=== PATIENT | male | born 1975 | race Caucasian/White ===

== ENCOUNTER 2016-12-17 07:23 | Emergency (ER) | payer BC ==
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
--- NOTE | 2016-12-17 09:02 | ED ORDER SUMMARY ---
..... Patient: CECILIA BARRAGAN OrderSheet [facility] VisitID: [id number] [address] [place] [address] 41y, M Registration Date/Time: 12/17/2016 ORDER SHEET Weight: 70.3 kg (stated) Allergies: None GENERAL ORDERS: EKG - ER Stat (07:35 12/17/2016 Lauri R.NJoya per protocol) (7:44 Lauri R.N.) Chest 1V Urgent (07:54 12/17/2016 Alice Vasquez) (8:10 Vickie R.N.) Cardiac Panel Stat (07:54 12/17/2016 Alice Vasquez) (8:09 Vickie R.N.) MEDICATION ORDERS: IV FLUIDS: IV Saline Lock (07:54 12/17/2016 Alice Vasquez) (8:10 Vickie R.N.) ORDER SHEET NOTES: [Electronically signed by Nathanael Gustafson Dr. (09:04 12/17/2016)] [Electronically signed by Ludin Mtichell R.N. (09:16 12/17/2016)] [Electronically locked/signed by Ludin Mitchell R.N. (09:16 12/17/2016)]
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
--- NOTE | 2016-12-17 09:02 | ED ORDER SUMMARY ---
..... Patient: CECILIA BARRAGAN OrderSheet [facility] VisitID: [id number] [address] [place] [address] 41y, M Registration Date/Time: 12/17/2016 ORDER SHEET Weight: 70.3 kg (stated) Allergies: None GENERAL ORDERS: EKG - ER Stat (07:35 12/17/2016 Lauri R.NoJya per protocol) (7:44 Lauri R.N.) Chest 1V Urgent (07:54 12/17/2016 Alice Vasquez) (8:10 Vickie R.N.) Cardiac Panel Stat (07:54 12/17/2016 Alice Vasquez) (8:09 Vickie R.N.) MEDICATION ORDERS: IV FLUIDS: IV Saline Lock (07:54 12/17/2016 Alice Vasquez) (8:10 Vickie R.N.) ORDER SHEET NOTES: [Electronically signed by Nathanael Gustafson Dr. (09:04 12/17/2016)] [Electronically signed by Ludin Mitchell R.N. (09:16 12/17/2016)] [Electronically locked/signed by Ludin Mitchell R.N. (09:16 12/17/2016)]
--- NOTE | 2016-12-17 09:16 | ED DISCHARGE INSTRUCTIONS ---
Patient: CECILIA BARRAGAN General Instructions [facility] VisitID: [id number] [place] [address] 41y, M Registration Date/Time: 12/17/2016 Atypical chest pain .12 lead EKG performed. INSTRUCTIONS Your Current Medications: CONTINUE TAKING THE FOLLOWING MEDICATIONS: None*. Follow-up: Follow up with your doctor in about three days. Call for an appointment. Screening today revealed the patient's blood pressure to be in the normal range. ADDITIONAL INFORMATION Chest Pain, Noncardiac Based on your visit today, the exact cause of your chest pain is not certain. Your condition does not seem serious and your pain does not appear to be coming from your heart. However, sometimes the signs of a serious problem take more time to appear. Therefore, please watch for the warning signs listed below. Home Care: Rest today and avoid strenuous activity. Take any prescribed medicine as directed. Follow Up with your doctor or this facility as instructed or if you do not start to feel better within 24 hours. Get Prompt Medical Attention if any of the following occur: A change in the type of pain: if it feels different, becomes more severe, lasts longer, or begins to spread into your shoulder, arm, neck, jaw or back Shortness of breath or increased pain with breathing Cough with dark colored sputum (phlegm) or blood Weakness, dizziness, or fainting Fever of 100.4F (38C) or higher, or as directed by your healthcare provider Swelling, pain or redness in one leg You have been given the following additional information: Chest Pain, Noncardiac (Electronically signed by Nathanael Gustafson Dr. 12/17/2016 9:04)
--- NOTE | 2016-12-17 09:16 | ED MAR SUMMARY ---
..... Medication Administration Record [facility] [address], [place] [id number] Patient: CECILIA BARRAGAN Visit ID: [id number] 41y, M Weight: 70.3 kg Height/Length: 71 in BMI: 21.6 ALLERGIES: None
--- NOTE | 2016-12-17 09:16 | ED MED RECONCILIATION SUMMARY ---
Patient: CECILIA BARRAGAN Medication Reconciliation Report [facility] VisitID: [id number] [address] [place] [address] 41y, M Registration Date/Time: 12/17/2016 Weight: 70.3 kg Height/Length: 71 in. BMI: 21.6 ALLERGIES: None The patient's Home Medications are listed below: NONE. The source(s) of the original Home Medication information: Not obtained. The following Medications were given to the patient in the Emergency Department: None. The following Medications were prescribed to the patient: None.
--- NOTE | 2016-12-17 09:16 | ED DISCHARGE INSTRUCTIONS ---
Patient: CECILIA BARRAGAN General Instructions [facility] VisitID: [id number] [place] [address] 41y, M Registration Date/Time: 12/17/2016 Atypical chest pain .12 lead EKG performed. INSTRUCTIONS Your Current Medications: CONTINUE TAKING THE FOLLOWING MEDICATIONS: None*. Follow-up: Follow up with your doctor in about three days. Call for an appointment. Screening today revealed the patient's blood pressure to be in the normal range. ADDITIONAL INFORMATION Chest Pain, Noncardiac Based on your visit today, the exact cause of your chest pain is not certain. Your condition does not seem serious and your pain does not appear to be coming from your heart. However, sometimes the signs of a serious problem take more time to appear. Therefore, please watch for the warning signs listed below. Home Care: Rest today and avoid strenuous activity. Take any prescribed medicine as directed. Follow Up with your doctor or this facility as instructed or if you do not start to feel better within 24 hours. Get Prompt Medical Attention if any of the following occur: A change in the type of pain: if it feels different, becomes more severe, lasts longer, or begins to spread into your shoulder, arm, neck, jaw or back Shortness of breath or increased pain with breathing Cough with dark colored sputum (phlegm) or blood Weakness, dizziness, or fainting Fever of 100.4F (38C) or higher, or as directed by your healthcare provider Swelling, pain or redness in one leg You have been given the following additional information: Chest Pain, Noncardiac (Electronically signed by Nathanael Gustafson Dr. 12/17/2016 9:04)
--- NOTE | 2016-12-17 09:16 | ED MED RECONCILIATION SUMMARY ---
Patient: CECILIA BARRAGAN Medication Reconciliation Report [facility] VisitID: [id number] [address] [place] [address] 41y, M Registration Date/Time: 12/17/2016 Weight: 70.3 kg Height/Length: 71 in. BMI: 21.6 ALLERGIES: None The patient's Home Medications are listed below: NONE. The source(s) of the original Home Medication information: Not obtained. The following Medications were given to the patient in the Emergency Department: None. The following Medications were prescribed to the patient: None.
--- NOTE | 2016-12-17 09:16 | ED MAR SUMMARY ---
..... Medication Administration Record [facility] [address] [place] [id number] Patient: CECILIA BARRAGAN Visit ID: [id number] 41y, M Weight: 70.3 kg Height/Length: 71 in BMI: 21.6 ALLERGIES: None
--- NOTE | 2016-12-17 10:02 | DIAGNOSTIC IMAGING REPORT ---
PROCEDURE: XR CHEST 1 VIEW INDICATION: CHEST PAIN TECHNIQUE: Portable AP view 08:24 a.m. COMPARISON: Chest x-ray 10/26/2015 FINDINGS: Lungs are clear. Heart and mediastinum are normal. Thorax is normal. IMPRESSION: 1. Negative chest.
== END 2016-12-17 09:14 | disposition home or self-care (01) ==
LOC: ED SRH 07:23
DX: R07.89 Other chest pain (principal); Z87.891 Personal history of nicotine dependence
CPT/HCPCS: 90100; 90616; 92610; 92720; 95059